=== PATIENT | male | born 1965 | race American Indian/Alaskan Native ===

== ENCOUNTER 2017-04-11 16:20 | Emergency (ER) | payer OTHER ==
--- NOTE | 2017-04-11 19:02 | Ultrasound Report ---
FINAL REPORT PROCEDURE: US TESTICULAR DOPPLER COMP TECHNIQUE: Real-time allison-scale and color flow Doppler sonography in multiple planes of the scrotum, testicles, and epididymes was performed. Velocity spectral waveform analysis Doppler imaging of the arterial inflow and venous outflow of the testicles was performed with image documentation. CPT 05233 and 44566 HISTORY: Left testicular pain COMPARISON: No prior studies are available for comparison. FINDINGS: RIGHT TESTICLE: Size: 3.8 x 1.9 x 3.0 cm . Appearance: Normal size and echotexture . Arterial blood flow: Normal spectral waveforms, flow velocities and color flow images.. Venous blood flow: Normal spectral waveforms and color flow images. Right epididymis: Cyst is seen in the head measuring up to 6 millimeters. Hydrocele: Small right hydrocele is present. LEFT TESTICLE Size: 3.9 x 1.8 x 3.0 cm . Appearance: Normal size and echotexture . Arterial blood flow: Normal spectral waveforms, flow velocities and color flow images.. Venous blood flow: Normal spectral waveforms and color flow images. Leftepididymis: Enlarged epididymis with hypervascularity of the tail, compatible with epididymitis. There is a 3 millimeter cyst in the epididymal head. Hydrocele: None . IMPRESSION: Findings compatible with left-sided epididymitis
--- NOTE | 2017-04-11 22:55 | Emergency Department Report ---
ED Male HPI - General Chief complaint: Urogenital-Male Stated complaint: TEST. PAIN Time Seen by Provider: 04/11/17 22:48 Source: patient Mode of arrival: Ambulatory Limitations: No Limitations - History of Present Illness Initial comments: 52 YO MALE C/O LEFT TESTICULAR PAIN AND SWELLING THAT BEGAN 2 DAYS AGO AFTER HE CAME FROM THE GYM. 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 THE PAIN WAS SEVERE AND THUS HE WAS NOT ABLE TO DO A SELF EXAM UNTIL AFTER TAKING ADVIL WHICH DECREASED THE PAIN. YESTERDAY, HE WAS ABLE TO EXAMINE THE TESTICLE AND FELT A LUMP. TODAY, HIS PAIN IS BETTER THAN BEFORE AND HE GOOGLED INFORMATION THAT TALKED ABOUT TORSION THSU HE CAME IN TO HAVE THE TESTICLE EXAMINED. HE HAD A SIMILAR EXPERIENCE YEARS AGO AND WAS DX WITH VARICOCELE MD Complaint: testicle pain, testicle swelling -: Sudden Location: left testicle Radiation: none Severity: severe Severity scale (0 -10): 10 Consistency: now resolved Improves with: medication (ADVIL) Worsens with: movement denies other symptoms - Related Data Sexually active: Yes Previous Rx's Medication Instructions Recorded Last Taken Type Levofloxacin [Levaquin TAB] 500 mg PO DAILY #7 tablet 04/11/17 Unknown Rx Allergies Allergy/AdvReac Type Severity Reaction Status Date / Time amoxicillin [From Amoxil] Allergy Rash Verified 04/11/17 16:24 ED Review of Systems ROS: Stated complaint: TEST. PAIN Other details as noted in HPI Constitutional: denies: chills, fever Eyes: denies: eye pain, eye discharge, vision change ENT: denies: ear pain, throat pain Respiratory: denies: cough, shortness of breath, wheezing Cardiovascular: denies: chest pain, palpitations Endocrine: no symptoms reported Gastrointestinal: denies: abdominal pain, nausea, diarrhea Genitourinary: testicular mass. denies: urgency, dysuria, discharge Musculoskeletal: denies: back pain, joint swelling, arthralgia Skin: denies: rash, lesions Neurological: denies: headache, weakness, paresthesias Psychiatric: denies: anxiety, depression Hematological/Lymphatic: denies: easy bleeding, easy bruising ED Past Medical Hx - Past Medical History Previous Medical History?: No - Surgical History Hx Appendectomy: Yes - Social History Smoking Status: Never Smoker Substance Use Type: None - Medications Home Medications: Home Medications Medication Instructions Recorded Confirmed Last Taken Type Levofloxacin [Levaquin TAB] 500 mg PO DAILY #7 tablet 04/11/17 Unknown Rx ED Physical Exam - General Limitations: No Limitations General appearance: alert, in no apparent distress - Head Head exam: Present: atraumatic, normocephalic - Eye Eye exam: Present: normal appearance, EOMI - ENT ENT exam: Present: mucous membranes moist - Neck Neck exam: Present: normal inspection, full ROM - Respiratory Respiratory exam: Present: normal lung sounds bilaterally. Absent: respiratory distress - Cardiovascular Cardiovascular Exam: Present: regular rate, normal rhythm. Absent: systolic murmur, diastolic murmur, rubs, gallop - GI/Abdominal GI/Abdominal exam: Present: soft, normal bowel sounds - Rectal Rectal exam: Present: deferred - exam: Present: normal inspection, testicular tenderness (MILD LEFT, NO EPIDIDYMAL TENDERNESS), urethral discharge (WHITE). Absent: scrotal swelling, vertical testicular lie, circumcision - Extremities Exam Extremities exam: Present: normal inspection, full ROM - Back Exam Back exam: Present: normal inspection, full ROM - Neurological Exam Neurological exam: Present: alert, oriented X3 - Psychiatric Psychiatric exam: Present: normal affect, normal mood - Skin Skin exam: Present: warm, dry, intact, normal color. Absent: rash ED Course Vital Signs 04/11/17 04/11/17 04/11/17 16:24 21:17 22:30 Temperature 98.6 F Pulse Rate 78 52 L Respiratory 16 18 Rate Blood Pressure 117/71 132/80 Blood Pressure 119/70 [Right] O2 Sat by Pulse 100 99 Oximetry 04/11/17 22:32 Temperature Pulse Rate Respiratory 18 Rate Blood Pressure Blood Pressure [Right] O2 Sat by Pulse Oximetry ED Medical Decision Making - Radiology Data Radiology results: report reviewed (US TESTICULAR: SWOLLEN EPIDIDYMIS AND HYPERVALSULARITY AND CYST AT HEAD OF EPIDIDYMIS) Critical care attestation.: If time is entered above; I have spent that time in minutes in the direct care of this critically ill patient, excluding procedure time. ED Disposition Clinical Impression: Epididymitis, Epididymal cyst Disposition: - TO HOME OR SELFCARE Is pt being admited?: No Does the pt Need Aspirin: No Condition: Stable Instructions: Epididymitis (ED) Additional Instructions: PLEASE IF YOU HAVE TESTICULAR PAIN GET IT EVALUATED IMMEDIATELY. THERE IS A POSSIBILITY THAT THIS WAS TORSION BUT IT DETORSED ITSELF. PLEASE RETURN TO ER IF THERE IS INCREASED PAIN, SWELLING OF YOUR TESTICLES. PLEASE BE AWARE THAT EPIDIDYMITIS CAN ALSO BE CAUSED BY A SEXUALLY TRANSMITTED DISEASE.FOLLOW UP WITH YOUR DOCTOR IN 2 DAYS Prescriptions: Levofloxacin [Levaquin TAB] 500 mg PO DAILY #7 tablet Referrals: PRIMARY CARE, [Primary Care Provider] - 3-5 Days JO ANN BLOUNT MD [Staff Physician] - 3-5 Days Time of Disposition: 23:18
[2017-04-11] MEDS ORDERED: LEVAQUIN PO ONE (23:14)
[2017-04-11 23:52] VITALS: BP 124/83
== END 2017-04-11 23:58 | disposition home or self-care (01) ==
LOC: ED 16:20
DX: N50.3 Cyst of epididymis (principal); N45.1 Epididymitis; Z88.1 Allergy status to other antibiotic agents; Z90.49 Acquired absence of other specified parts of digestive tract
CPT/HCPCS: 93975; 99283